=== PATIENT | male | born 1935 | race Caucasian/White ===

== ENCOUNTER → 2016-09-27 | Outpatient (CLI) | payer OTHER | LOC: BMCIMAGING 16:11 | PROVIDERS: ATTEND Podiatrist Foot & Ankle Surgery | DX: M77.42 Metatarsalgia, left foot (principal); M77.32 Calcaneal spur, left foot ==

== ENCOUNTER → 2016-09-29 | Outpatient (CLI) | payer OTHER | LOC: FIMAGING 13:20 | PROVIDERS: ATTEND Podiatrist Foot & Ankle Surgery | DX: S86.312A Strain of muscle(s) and tendon(s) of peroneal muscle group at lower leg level, left leg, initial encounter (principal); S93.492A Sprain of other ligament of left ankle, initial encounter ==